=== PATIENT | female | born 1985 | race Caucasian/White ===

== ENCOUNTER 2024-09-28 17:41 | Inpatient (IN) | payer BC, SELFPAY ==
[2024-09-28] VITALS (24 sets, daily range): BP systolic 118–163; BP diastolic 63–92; PULSE 59–145; TEMP 36.8–36.9; O2SAT 96–100; BMI 30.9
--- NOTE | 2024-09-28 17:31 | PM.OBHPLI ---
OB - H&P: HPI Labor/Induction History of Present Illness Time Seen by Provider: 17:31 Date Seen: 09/28/24 Chief Complaint: The patient is a 39 year old 4 para 3 at 38+4 weeks gestation by 8 wk US, who presents with regular, painful contractions. Chief complaint: Maternity : 4 Para: 3 Narrative: Sheron Peguero is a 39 year old female, 4 para 3 at 38+4 weeks gestation by 8 wk US, who presents with regular, painful contractions. Membranes were swept yesterday in the clinic. Contractions started today at 1500. Became closer together and increasingly painful. No LOF. Brown spotting since membrane sweep, no BRB. Normal movement. Initial BP elevated to 163/92. Repeats 145/81, 139/86. Denies KEY, visual change, RUQ pain, swelling. Blood pressures have been normal in the clinic. complicated by AMA. Normal level 2 US, low risk NIPT. History of Present Dating criteria: based on 1st trimester US only care: good care Ultrasounds: normal 1st trimester US and normal mid trimester US Labs Blood type: O (+) positive Rubella: immune RPR/VDLR: nonreactive GBS status: negative HBsAG: negative Review of Systems Status of ROS: Reports: 10 or more systems reviewed and unremarkable except as noted in History and below OB - H&P: Exam Physical Exam: Vital signs: Pulse BP Pulse Ox 76 145/81 H 99 09/28/24 17:18 09/28/24 17:18 09/28/24 17:12 Narrative: General appearance: Well-appearing adult female. Alert, oriented and appropriate. Sitting up in hospital bed, breathing through contractions. HEENT: EOMI, no conjunctival injection or discharge. MMM. Neck: Supple. CV: RRR, no rubs, murmurs or extra heart sounds. Pulm: CTAB, no wheezes, rales or rhonchi. Abdomen: Gravid. MSK: Moving all extremities. Ext: Warm and well-perfused. No LE edema. Skin: No rashes appreciated over exposed skin. Neuro: Grossly normal strength and sensation. No focal deficits. Psych: Normal affect. Detailed Labor and Delivery Exam: Dilation (cm): 7 Effacement (%): 80 Cervix position: anterior Consistency: soft Comments: Ctx q 2-4 mins Fetus (Single): Station: -1 Amniotic Membrane Status: intact Heart Rate Baseline: 130 Monitor Accelerations: Present Monitor Decelerations: None Group Home Variability: Moderate (6-25) OB - Problem Based A/P Additional Plan (1) Active labor at term: Status: Acute (2) AMA (advanced maternal age) multigravida 35+: Problem details: Normal level 2 US. Low risk NIPT. Status: Acute Plan - Active labor, hx of short second stage - Initial elevated BP, repeats have been WNL - GBS negative - monitoring category I - Patient desires epidural, anesthesia aware - Anticipate vaginal delivery
[2024-09-28] MEDS: LACTATED RINGERS 1000 ML 1,000 ML IV (17:40)
[2024-09-28 17:46] LABS: Hematocrit 36.2 % (33.0-51.0); Hemoglobin* 12.8 gm/dL (12.0-16.0); Immature Granulocytes Abs Auto 0.00 K/uL (0.00-0.30); Immature Granulocytes Pct Auto 0.4 %; Lymphocytes Absolute Auto 2.90 K/uL (0.90-2.90); Mean Corpuscular HGB Conc 35 gm/dL (32-36); Mean Corpuscular Hemoglobin 32 pg (26-34); Mean Corpuscular Volume 89 fL (80-100); RDW Coefficient of Variation % 13.2 % (11.5-15.5); Red Blood Count 4.05 m/uL (4.00-5.20); Slide Review Reflex No; White Blood Count* 12.29 K/uL (4.50-11.00)
--- NOTE | 2024-09-28 18:42 | W.PM.OBVAGDE ---
OB Procedure Vag Delivery Mother Details Mother Details: The patient is a 39 year-old, 4, Para 3, admitted on 09/28/24 at 38+4 Days gestation in active labor. Labor started 1300 at home. Contractions became more frequent and intense. Upon presentation to the center, she was found to be cornel every 2-4 minutes, cervix was 6-7/80/-1 with bulging bag. FHT category I. Initial blood pressure elevated to the severe range, but subsequent blood pressures all WNL. She requested epidural; fluid bolus started and anesthesia called. Received nitrous oxide for pain management. At 1811, she felt more pressure, and was found to be complete. Pushing began 1817. FHT were category II with several deep decelerations that returned to baseline between contractions. Vigorous male infant delivered over an intact perineum at 1822 and was placed on the maternal chest. There was a lower extremity cord that was delivered through. IV pitocin started with delivery of the head. Cord was cut and clamped after 30-60 second delay. Placenta delivered spontaneously at 1828; 3V and appears intact. Bilateral 1st degree periurethral lacerations were hemostatic and not repaired. Mom and baby are resting comfortably. : 4 Para: 3 Weeks Gestation: 38.4 Admission Date: 09/28/24 Additional Details Amniotic Membrane Status: SROM Amniotic Membrane Rupture Date: 09/28/24 Amniotic Membrane Fluid Description: Clear Analgesia/Anesthesia Type: None Waterbirth: No Pitcoin: No Intrapartal Events: None Labor Onset: 15:00 Complete: 18:12 Pushin:18 Heart: heart tones during second stage were category II. Several deep decelerations with contractions/pushing that recovered to baseline between contractions. Delivery Details Delivery Date: 09/28/24 Delivery Time: 18:23 Route of delivery: Gender: Male Viability: Alive; Heart Rate Present Position at Delivery: OA Delivery Details: Delivered via spontaneous vaginal delivery. was placed on maternal abdomen.? Cord was clamped and cut after a 30-60 second delay. Nose and mouth were bulb suctioned.? Infant weight pending. 1 Minute Interval Total Score: 8 5 Minute Interval Total Score: 9 Additional Details Shoulder Dystocia: No Placenta Delivery Time: 18:28 Placental Delivery Description: Spontaneous Procedure Done: Global Blood Loss: 100 Laceration: Periurethral - 1st Degree (bilateral) Blood Loss Measurement Type: EBL Bakri Used: No Sponge/Need Count Correct: Yes Cord Vessel Description: 3 Vessels and Around Extremity Event Summary Status: Mother and infant were stable after delivery. Disposition: floor
[2024-09-29 00:04] VITALS: BP 117/71; PULSE 66; RESP 16; TEMP 37.2; O2SAT 97
[2024-09-29 04:14] VITALS: BP 111/65; PULSE 63; RESP 20; O2SAT 96
[2024-09-29 07:05] LABS: Hemoglobin* 11.7 gm/dL (12.0-16.0)
[2024-09-29 08:15] VITALS: BP 119/74; PULSE 66; RESP 16; TEMP 37.1; O2SAT 98
[2024-09-29] MEDS: DOCUSATE SODIUM 100 MG CAPSULE PO (08:45)
--- NOTE | 2024-09-29 10:09 | PM.OBDSVD1 ---
DS: Providers Provider Time Seen by Provider: 10:09 Date Seen: 09/29/24 Date of admission: 09/28/24 17:41 Primary care physician: Carli Gonzales DO Admitting Clinician: Amira Villalta MD Attending Physician on discharge: Amira Villalta MD Date of Discharge: 09/29/24 DS: Diagnosis Discharge Diagnosis (1) Active labor at term: Status: Acute Problem details: . EBL 100 cc. pp hgb 11.7. (2) AMA (advanced maternal age) multigravida 35+: Status: Acute Problem details: Normal level 2 US. Low risk NIPT. Exam Narrative: Exam Narrative: General appearance: Well-appearing adult female. Alert, oriented and appropriate. Moving about the room. HEENT: EOMI, no conjunctival injection or discharge. MMM. Neck: Supple. CV: RRR, no rubs, murmurs or extra heart sounds. Pulm: CTAB, no wheezes, rales or rhonchi. Abdomen: Soft, non-tender. Fundus palpated at the umbilicus. MSK: Moving all extremities. Ext: Warm and well-perfused. No LE edema. Skin: No rashes appreciated over exposed skin. Neuro: Grossly normal strength and sensation. No focal deficits. Psych: Normal affect. Const: Vital Signs, click to edit/add: Vital Signs - 24 hr 09/28/24 17:02 09/28/24 17:03 09/28/24 17:07 Temperature Pulse Rate 71 Pulse Rate [Pulse Oximeter] Respiratory Rate Blood Pressure 163/92 H Blood Pressure [Le ft Arm] Pulse Oximetry 99 99 Oxygen Delivery Me thod 09/28/24 17:12 09/28/24 17:18 09/28/24 17:18 Temperature Pulse Rate 76 Pulse Rate [Pulse Oximeter] Respiratory Rate Blood Pressure 145/81 H Blood Pressure [Le ft Arm] Pulse Oximetry 99 Oxygen Delivery Me thod 09/28/24 17:33 09/28/24 17:33 09/28/24 17:42 Temperature Pulse Rate 96 Pulse Rate [Pulse Oximeter] Respiratory Rate Blood Pressure 139/86 Blood Pressure [Le ft Arm] Pulse Oximetry 100 Oxygen Delivery Me thod 09/28/24 17:47 09/28/24 17:49 09/28/24 17:49 Temperature Pulse Rate 71 Pulse Rate [Pulse Oximeter] Respiratory Rate Blood Pressure 138/74 Blood Pressure [Le ft Arm] Pulse Oximetry 100 Oxygen Delivery Ma thod 09/28/24 17:52 09/28/24 17:57 09/28/24 18:02 Temperature Pulse Rate Pulse Rate [Pulse Oximeter] Respiratory Rate Blood Pressure Blood Pressure [Le ft Arm] Pulse Oximetry 100 100 100 Oxygen Delivery Ma thod 09/28/24 18:08 09/28/24 18:08 09/28/24 18:27 Temperature Pulse Rate 64 Pulse Rate [Pulse Oximeter] Respiratory Rate Blood Pressure 138/63 Blood Pressure [Le ft Arm] Pulse Oximetry 96 Oxygen Delivery Ma thod 09/28/24 18:27 09/28/24 18:27 09/28/24 18:32 Temperature Pulse Rate 88 Pulse Rate [Pulse Oximeter] Respiratory Rate Blood Pressure 149/77 H Blood Pressure [Le ft Arm] Pulse Oximetry 98 Oxygen Delivery Ma thod 09/28/24 18:34 09/28/24 18:34 09/28/24 18:37 Temperature 98.3 F Pulse Rate 76 Pulse Rate [Pulse Oximeter] Respiratory Rate Blood Pressure 118/71 Blood Pressure [Le ft Arm] Pulse Oximetry Oxygen Delivery Ma thod 09/28/24 18:42 09/28/24 18:42 09/28/24 18:42 Temperature 98.4 F Pulse Rate 71 Pulse Rate [Pulse Oximeter] Respiratory Rate Blood Pressure 121/71 Blood Pressure [Le ft Arm] Pulse Oximetry Oxygen Delivery Ma thod 09/28/24 18:57 09/28/24 18:57 09/28/24 19:12 Temperature Pulse Rate 78 Pulse Rate [Pulse Oximeter] Respiratory Rate Blood Pressure 145/67 H 130/65 Blood Pressure [Le ft Arm] Pulse Oximetry Oxygen Delivery Ma thod 09/28/24 19:12 09/28/24 19:12 09/28/24 19:27 Temperature 98.2 F Pulse Rate 65 Pulse Rate [Pulse Oximeter] Respiratory Rate Blood Pressure 125/68 Blood Pressure [Le ft Arm] Pulse Oximetry Oxygen Delivery Ma thod 09/28/24 19:27 09/28/24 19:42 09/28/24 19:42 Temperature Pulse Rate 64 59 L Pulse Rate [Pulse Oximeter] Respiratory Rate Blood Pressure 126/75 Blood Pressure [Le ft Arm] Pulse Oximetry Oxygen Delivery Me thod 09/28/24 19:57 09/28/24 19:57 09/28/24 20:12 Temperature Pulse Rate 65 Pulse Rate [Pulse Oximeter] Respiratory Rate Blood Pressure 128/79 131/79 Blood Pressure [Le ft Arm] Pulse Oximetry Oxygen Delivery Me thod 09/28/24 20:12 09/28/24 20:12 09/29/24 00:04 Temperature 98.4 F 98.9 F Pulse Rate 65 Pulse Rate [Pulse Oximeter] 66 Respiratory Rate 16 Blood Pressure Blood Pressure [Le ft Arm] 117/71 Pulse Oximetry 97 Oxygen Delivery Me thod Room Air 09/29/24 04:14 09/29/24 08:15 Temperature 98.7 F Pulse Rate Pulse Rate [Pulse Oximeter] 63 66 Respiratory Rate 20 16 Blood Pressure Blood Pressure [Le ft Arm] 111/65 119/74 Pulse Oximetry 96 98 Oxygen Delivery Me thod Room Air Room Air OB - DS: Summary Hospital Course Hospital Course: The patient is a 39 year old G 4 P 3 at 38+4 weeks gestation that was admitted to the Center on 09/28/24 for active labor. She had an uncomplicated vaginal delivery. Minimal EBL. Bilateral first degree periurethral lacerations were not repaired. She delivered a viable male infant. She is breast feeding. the patient has done well. Single severe range blood pressure immediately upon arrival, subsequently blood pressures have been normal. Peripartum Data Infant delivery method: Vaginal Laceration description: Periurethral - 1st Degree Episiotomy description: None complications: none Infant Gender: Male Discharge Plan: Home Time Spent with Patient Time attestation: Total time spent providing and/or coordinating discharge services: Time spent: Greater than 30 minutes Discharge Plan Discharge Disposition: Home, Self-Care Date of Admission: 09/28/24 17:41 Attending Provider on Discharge: Amira Villalta Primary Care Provider: Carli Gonzales Condition: Improved Anticipated Discharge Date/Time: 09/29/24 19:00 Discharge Medications: New acetaminophen 500 mg Tablet 1,000 mg PO Q6H PRNQty: 30 0RF ibuprofen 600 mg Tablet 600 mg PO Q6H PRNQty: 30 0RF Continued PNV no.95-ferrous fumarate-FA [ Multivitamins] 28 mg iron- 800 mcg tablet 1 tab PO DAILY Discharge Orders: Discharge Order (Routine); Ordered 09/29/24 Ordered By: Amira Villalta Patient Education: OB Vaginal/Breast Feeding Additional Instructions: Follow-up with Dr. Gonzales at the [facility] for 6 week post- visit. Activity Level: Activity as Tolerated Discharge Diet: Regular Follow Up Appointments: Carli Gonzales DO [Primary Care Provider, Family Practice] Forms: [facility], [facility] Inst[facility]
[2024-09-29 11:52] VITALS: BP 132/86; PULSE 61; RESP 16; TEMP 36.9; O2SAT 97
[2024-09-29 15:51] VITALS: BP 119/71; PULSE 66; RESP 18; TEMP 37; O2SAT 98
[2024-09-29 19:46] VITALS: BP 122/77; PULSE 63; RESP 18; TEMP 36.6; O2SAT 97
[2024-09-30 00:24] VITALS: BP 132/84; PULSE 59; RESP 16; TEMP 36.6; O2SAT 98
[2024-09-30] MEDS: IBUPROFEN 600 MG TABLET PO (04:26)
[2024-09-30 04:30] VITALS: BP 132/80; PULSE 56; RESP 16; TEMP 36.6; O2SAT 97
[2024-09-30 08:20] VITALS: BP 118/75; PULSE 59; RESP 16; TEMP 36.6; O2SAT 98
[2024-09-30] MEDS: DOCUSATE SODIUM 100 MG CAPSULE PO (08:24)
--- NOTE | 2024-09-30 10:36 | PM.OBDSVD1 ---
DS: Providers Provider Time Seen by Provider: 10:36 Date Seen: 09/30/24 Date of admission: 09/28/24 17:41 Primary care physician: Carli Gonzales DO Admitting Clinician: Amira Villalta MD Attending Physician on discharge: Amria Villalta MD Date of Discharge: 09/30/24 DS: Diagnosis Discharge Diagnosis (1) Active labor at term: Status: Acute Problem details: . EBL 100 cc. pp hgb 11.7. (2) AMA (advanced maternal age) multigravida 35+: Status: Acute Problem details: Normal level 2 US. Low risk NIPT. Exam Narrative: Exam Narrative: General appearance: Well-appearing adult female. Alert, oriented and appropriate. Active in the room. HEENT: EOMI, no conjunctival injection or discharge. MMM. Neck: Supple. CV: RRR, no rubs, murmurs or extra heart sounds. Pulm: CTAB, no wheezes, rales or rhonchi. Abdomen: Soft, non-tender. Fundus palpated at the umbilicus. MSK: Moving all extremities. Ext: Warm and well-perfused. No LE edema. Skin: No rashes appreciated over exposed skin. Neuro: Grossly normal strength and sensation. No focal deficits. Psych: Normal affect. Const: Vital Signs, click to edit/add: Vital Signs - 24 hr 09/29/24 11:52 09/29/24 15:51 09/29/24 19:46 Temperature 98.4 F 98.6 F 97.8 F Pulse Rate [Pulse Oximeter] 61 66 63 Respiratory Rate 16 18 18 Blood Pressure [Le ft Arm] 132/86 119/71 122/77 Pulse Oximetry 97 98 97 Oxygen Delivery Me thod Room Air Room Air Room Air 09/30/24 00:24 09/30/24 04:30 09/30/24 08:20 Temperature 97.8 F 97.9 F 97.9 F Pulse Rate [Pulse Oximeter] 59 L 56 L 59 L Respiratory Rate 16 16 16 Blood Pressure [Le ft Arm] 132/84 132/80 118/75 Pulse Oximetry 98 97 98 Oxygen Delivery Me thod Room Air Room Air Room Air OB - DS: Summary Hospital Course Hospital Course: The patient is a 39 year old G 4 P 3 at 38+4 weeks gestation that was admitted to the Center on 09/28/24 for active labor. She had an uncomplicated vaginal delivery. Minimal EBL. Bilateral first degree periurethral lacerations were not repaired. She delivered a viable male infant. She is breast feeding. the patient has done well. Single severe range blood pressure immediately upon arrival, subsequently blood pressures have been normal. Peripartum Data delivery method: Vaginal Laceration description: Periurethral - 1st Degree (bilateral) Episiotomy description: None complications: none Infant Gender: Male Infant Discharge Plan: Home [place] Infant A Infant Gender: Male Discharge Plan: Home Time Spent with Patient Time attestation: Total time spent providing and/or coordinating discharge services: Discharge Plan Discharge Disposition: Home, Self-Care Date of Admission: 09/28/24 17:41 Attending Provider on Discharge: Amira Villalta Primary Care Provider: Carli Gonzales Condition: Improved Anticipated Discharge Date/Time: 09/30/24 14:00 Discharge Medications: New acetaminophen 500 mg Tablet 1,000 mg PO Q6H PRNQty: 30 0RF ibuprofen 600 mg Tablet 600 mg PO Q6H PRNQty: 30 0RF Continued PNV no.95-ferrous fumarate-FA [ Multivitamins] 28 mg iron- 800 mcg tablet 1 tab PO DAILY Discharge Orders: Discharge Order (Routine); Ordered 09/30/24 Ordered By: Amira Villalta Patient Education: OB Vaginal/Breast Feeding Additional Instructions: Follow-up with Dr. Gonzales at the [facility] for 6 week post- visit. Activity Level: Activity as Tolerated Discharge Diet: Regular Follow Up Appointments: Carli Gonzales DO [Primary Care Provider, Family Practice] Forms: [facility], [facility]
== END 2024-09-30 14:45 | disposition home or self-care (01) | DRG 560 ==
LOC: OB OUT 17:41 → OB 17:41
PROVIDERS: Admitting Provider Internal Medicine; PCP Family Medicine; Visit Provider Family Medicine
DX: O70.0 First degree perineal laceration during delivery (principal); Z37.0 Single live birth; Z3A.38 38 weeks gestation of pregnancy
CPT/HCPCS: 36415; 85018; 85025; 86592; A9270; J3010; J7120